=== PATIENT | male | born 1970 | race Two or more races ===

== ENCOUNTER 2019-05-27 20:03 | Emergency (ER) | payer OTHER ==
[~2019-05-27] VITALS: Ht 175.3 cm; Wt 73.7 kg
[2019-05-27 20:15] VITALS: BP 138/82
== END 2019-05-27 21:39 | disposition left against medical advice (07) ==
LOC: ER 20:03
DX: H57.89 Other specified disorders of eye and adnexa (principal); Z53.21 Procedure and treatment not carried out due to patient leaving prior to being seen by health care provider

== ENCOUNTER 2020-06-04 17:29 | Emergency (ER) | payer OTHER ==
[~2020-06-04] VITALS: Ht 175.3 cm; Wt 74.8 kg
[2020-06-04 18:34] VITALS: BP 146/91
== END 2020-06-04 19:56 | disposition home or self-care (01) ==
LOC: ER 17:29
DX: S01.511A Laceration without foreign body of lip, initial encounter (principal); X58.XXXA Exposure to other specified factors, initial encounter; Y93.89 Activity, other specified; Y92.89 Other specified places as the place of occurrence of the external cause; Y99.8 Other external cause status
CPT/HCPCS: 12011